=== PATIENT | male | born 1980 | race Caucasian/White ===

== ENCOUNTER 2018-12-11 09:47 | Inpatient (IN) | payer MEDICAID ==
[~2018-12-11] VITALS: Ht 177.8 cm; Wt 95.3 kg
--- NOTE | 2018-12-11 09:51 | NUR ---
PT BIB ra c/o lower back pain and L hip pain s/p fall off ladder (approx 8ft), PT IS AAOX4, NOT IN RESPIRATORY DISTRESS, HOOKED TO MONITOR, KEPT RESTED AND COMFORTABLE, WILL CONTINUE TO MONITOR.
--- NOTE | 2018-12-11 09:55 | NUR ---
SEEN AND EXAMINED BY DR. ESPINOZA.
[2018-12-11] MEDS ORDERED: IV NS 0.9% 500 ML BAG IV ONE (10:00)
[2018-12-11] MEDS ORDERED: ONDANSETRON HCL/PF 4 MG/2 ML VIAL IVP ONE (10:00)
[2018-12-11] MEDS ORDERED: HYDROMORPHONE INJ 2 MG/ML DISP.SYRIN IV ONE (10:00)
--- NOTE | 2018-12-11 10:00 | NUR ---
IV LINE ESTABLISHED, LABS DRAWNED AND SENT TO LAB.
[2018-12-11] MEDS ORDERED: ONDANSETRON HCL/PF 4 MG/2 ML VIAL ONE ×2 (10:01→10:59)
[2018-12-11] MEDS ORDERED: HYDROMORPHONE 1 MG/1 ML DISP.SYRIN ONE ×2 (10:01→10:59)
[2018-12-11 10:04] LABS: BASOPHILS # (AUTO) 0.1 /CMM (0.0-0.2); BASOPHILS % (AUTO) 1.1 % (0.0-2.0); EOSINOPHILS % (AUTO) 2.6 % (0.0-6.0); HEMATOCRIT 45 % (39-51); HEMOGLOBIN 15.2 g/dL (13.5-17.5); LYMPHOCYTES # (AUTO) 2.1 /CMM (0.8-4.8); LYMPHOCYTES % (AUTO) 20.9 % (20.0-44.0); MEAN CORPUSCULAR HGB CONC 34 g/dl (31.0-36.0); MEAN CORPUSCULAR VOLUME 88 fL (80-96); MONOCYTES # (AUTO) 0.5 /CMM (0.1-1.30); NEUTROPHILS % (AUTO) 70.4 % (43.0-81.0); PLATELET COUNT (AUTO) 287 /CMM (150-450); RED BLOOD CELL COUNT(AUTO) 5.12 MIL/uL (4.5-6.0); WHITE BLOOD COUNT (AUTO) 9.9 K/uL (4.3-11.0)
[2018-12-11 10:12] LABS: CALCIUM, SERUM 8.4 mg/dL (8.5-10.1); POTASSIUM 4.6 mmol/L (3.5-5.1)
[2018-12-11] MEDS ORDERED: ONDANSETRON HCL/PF 4 MG/2 ML VIAL IV ONE (11:00)
[2018-12-11] MEDS ORDERED: HYDROMORPHONE 1 MG/1 ML DISP.SYRIN IM ONE (11:00)
--- NOTE | 2018-12-11 11:30 | NUR ---
PT IS WHEELED TO CT SCAN VIA [facility].
--- NOTE | 2018-12-11 12:53 | NUR ---
DR. DOLL AT BEDSIDE FOR EVAL.
--- NOTE | 2018-12-11 13:28 | NUR ---
REPORT GIVEN TO LUZ REAGAN FOR [facility]ONYA.
--- NOTE | 2018-12-11 14:20 | NUR ---
ms rn received a new admission, male,38 year old male, came in w/ dx of l 3 fracture secondary to fall, alert ,oriented x4, not in any form of distress,respiration even and unlabored, no sob noted, lungs are clear,abdomen soft, positive bowel sounds, denies pain at this time,all needs attended.
[2018-12-11 14:30] VITALS: BP 129/81
[2018-12-11] MEDS ORDERED: ZOLPIDEM TARTRATE 5 MG TABLET PO PRN (14:30)
[2018-12-11] MEDS ORDERED: ONDANSETRON HCL/PF 4 MG/2 ML VIAL IVP PRN (14:30)
[2018-12-11] MEDS ORDERED: HYDROCODONE/APAP 5/325MG 1 EACH TABLET PO PRN (14:30)
[2018-12-11] MEDS ORDERED: MAGNESIUM HYDROXIDE 30 ML UDC PO PRN (14:30)
[2018-12-11] MEDS ORDERED: MAG HYDROX/AL HYDROX/SIMETH 30 ML UDC PO PRN (14:30)
[2018-12-11] MEDS ORDERED: Z GUARD REMEDY 2 OZ OINT TP PRN (14:30)
[2018-12-11] MEDS ORDERED: ACETAMINOPHEN 325 MG TABLET PO PRN (14:30)
--- NOTE | 2018-12-11 15:20 | NUR ---
ms rn texted sangeeta rai of dr. grewal for neuro consult.
[2018-12-11 16:00] VITALS: BP 129/79
[2018-12-11] MEDS: MORPHINE SULFATE INJ 2 MG/ML DISP.SYRIN IV PRN (17:55)
--- NOTE | 2018-12-11 19:06 | NUR ---
ms rn on bed, no distress noted.
--- NOTE | 2018-12-11 19:30 | NUR ---
RN NOTES RECEIVED PT. AWAKE ON BED, A/OX4, AZERI SPEAKING, FAMILY AT BEDSIDE, DENIES PAIN AT THIS TIME, NO SOB, CALL LIGHT WITHIN REACH, SIDERAILSUPX2, CONTINUE TO MONITOR
[2018-12-11 20:00] VITALS: BP 126/80
[2018-12-12] MEDS: MORPHINE SULFATE INJ 2 MG/ML DISP.SYRIN IV PRN ×2 (01:38→13:14)
--- NOTE | 2018-12-12 01:42 | NUR ---
RN NOTES COMPLAINED OF TERRIBLE, BACK PAIN 04/21- MORPHINE 2 MG IV GIVEN ORDERED, V/S STABLE
[2018-12-12 06:31] LABS: BASOPHILS % (AUTO) 0.4 % (0.0-2.0); EOSINOPHILS % (AUTO) 1.8 % (0.0-6.0); HEMATOCRIT 43 % (39-51); HEMOGLOBIN 14.7 g/dL (13.5-17.5); LYMPHOCYTES # (AUTO) 1.9 /CMM (0.8-4.8); MEAN CORPUSCULAR HGB CONC 35 g/dl (31.0-36.0); MEAN CORPUSCULAR VOLUME 87 fL (80-96); MONOCYTES # (AUTO) 0.5 /CMM (0.1-1.30); MONOCYTES % (AUTO) 7.4 % (2.0-12.0); NEUTROPHILS # (AUTO) 4.5 /CMM (1.8-8.9); NEUTROPHILS % (AUTO) 63.4 % (43.0-81.0); PLATELET COUNT (AUTO) 259 /CMM (150-450); RED BLOOD CELL COUNT(AUTO) 4.92 MIL/uL (4.5-6.0); WHITE BLOOD COUNT (AUTO) 7.1 K/uL (4.3-11.0)
--- NOTE | 2018-12-12 06:40 | NUR ---
RN NOTES COMPLAINED OF TERRIBLE BACK PAIN 04/21 NORCO 10MG PO GIVEN ORDERED, V/S STABLE
[2018-12-12] MEDS: HYDROCODONE/APAP 10/325MG 1 EA TABLET PO PRN ×2 (06:43→16:43)
[2018-12-12 06:54] LABS: THYROID STIMULATING HORMONE 1.135 uIU/mL (0.358-3.74)
--- NOTE | 2018-12-12 06:56 | NUR ---
RN NOTES AWAKE, MORNING CARE RENDERED, CALL LIGHT WITHIN REACH, VERNAILSUPX2, PT. NEEDS ATTENDED
[2018-12-12 07:17] LABS: CALCIUM, SERUM 8.5 mg/dL (8.5-10.1); CREATININE 0.7 mg/dL (0.6-1.3); MAGNESIUM 2.4 mg/dL (1.8-2.4); PHOSPHORUS 3.6 mg/dL (2.5-4.9)
[2018-12-12 08:00] VITALS: BP 126/76
--- NOTE | 2018-12-12 08:00 | NUR ---
MS RN NOTES PATIENT IN BED RESTING ALERT, ORIENTED X3. NO SOB OR ACUTE DISTRESS NOTED. PERIPHERAL IV INTACT PATENT. BED IN LOW LOCKED POSITION. CALL LIGHT WITHIN REACH. PATIENT WAITING FOR LSO BRACE AND PT EVAL. WILL CONTINUE TO MONITOR AND MANAGE PAIN.
--- NOTE | 2018-12-12 13:00 | NUR ---
MS RN NOTES CALLED TO FOLLOW UP WITH LSO BRACE REQUESTED TO FAX MD ORDER AND FACE SHEET. FAXED ALL REQUESTED PAPERS WAITING FOR BRACE.
[2018-12-12] MEDS ORDERED: IBUP-1957 PO (14:00)
[2018-12-12] MEDS ORDERED: ACET325T53 PO (14:00)
--- NOTE | 2018-12-12 15:00 | NUR ---
MS RN NOTES PATIENT RECEIVED LSO BRACE EVALUATED BY PT AND SEEN AMBULATING IN THE HALLWAY WITH WALKER. PATIENT PROVIDED WALKER FOR HOME WITH PT REFERRAL. WILL DISCHARGE PATIENT HOME.
[2018-12-12 16:00] VITALS: BP 134/91
--- NOTE | 2018-12-12 16:00 | NUR ---
MS RN NOTES PATIENT SEEN BY PT LSO BRACE PLACED PATIENT EDUCATED ON USE OF THE BRACE AND FALL PRECAUTIONS BY PT. CASE MANAGEMENT INVOLVED FOR OUTPATIENT THERAPY STATES PATIENT DOES NOT QUALIFY DUE TO INSURANCE. PATIENT MADE AWARE.
--- NOTE | 2018-12-12 16:30 | NUR ---
MS RN NOTES PATIENT REQUEST DRU FOR HOME PAIN MANAGEMENT, CALLED DR. ALMONTE RELAYED PATIENTS REQUEST, PER DOCTOR GAGE NO NARCOTICS JUST TAKE IBUPROFEN AND TYLENOL AT HOME.
--- NOTE | 2018-12-12 17:45 | NUR ---
MS RN NOTES PATIENT DISCHARGED HOME WITH FAMILY. DISCHARGE TEACHING PROVIDED VERBALIZED UNDERSTANDING. LSO BRACE PROVIDED. MD AWARE OF ALL ABNORMAL RESULTS. ALL BELONGINGS ACCOUNTED FOR, BELONGING LIST SIGNED. WALKER PROVIDED FOR HOME. PERIPHERAL IV REMOVED WITH MINIMAL BLEEDING. ID BAND REMOVED. PATIENT ESCORTED TO CAR.
== END 2018-12-12 17:45 | disposition home or self-care (01) | DRG 347 ==
LOC: ER 09:50 → MED 13:27
DX: S32.039A Unspecified fracture of third lumbar vertebra, initial encounter for closed fracture (principal); E66.9 Obesity, unspecified; W17.89XA Other fall from one level to another, initial encounter; Y93.89 Activity, other specified; Y99.8 Other external cause status; Y92.89 Other specified places as the place of occurrence of the external cause; Z68.30 Body mass index [BMI] 30.0-30.9, adult
CPT/HCPCS: 36415; 72131-TC; 72170-TC; 80048-TC; 80061-TC; 83735-TC; 84100-TC; 84443-TC; 85025-TC; 97116-TC; G0378; J1170; J2270; J2405; J7040

== ENCOUNTER 2019-01-01 10:26 | Outpatient (CLI) | payer SELFPAY ==
[~2019-01-01 10:26] MED LIST: ACET325T53 PO; IBUP-1957 PO
[2019-01-01 10:42] VITALS: BP 133/90
== END 2019-01-01 23:59 | disposition home or self-care (01) ==
LOC: MSC 10:26
PROVIDERS: ATTEND Nurse Practitioner Acute Care
DX: S32.030D Wedge compression fracture of third lumbar vertebra, subsequent encounter for fracture with routine healing (principal); W19.XXXD Unspecified fall, subsequent encounter; E66.9 Obesity, unspecified